=== PATIENT | male | born 1950 | race Caucasian/White ===

== ENCOUNTER 2016-03-19 14:21 | Emergency (ER) | payer MEDICARE, OTHER ==
[2016-03-19 14:31] VITALS: BMI 4104.7
[2016-03-19] MEDS ORDERED: DIPHTHERIA AND TETANUS (ADULT) 0.5 ML SYR IM ONE (14:36)
[2016-03-19] MEDS ORDERED: Lidocaine 2%-Epinephrine 1:100,000 20ml vial INF ONE (14:57)
--- NOTE | 2016-03-19 14:58 | EDPRACDOC ---
- General Information Chief Complaint: Wound Information Source: Patient Mode of Arrival:: Car Home Medications: Home Medications Insulin Glargine,Hum.rec.anlog [Lantus] 25 unit SQ DAILY 02/23/16 Sitagliptin Phosphate [Januvia] 100 mg PO DAILY 02/23/16 Cephalexin Monohydrate [Keflex] 500 mg PO Q6H #28 cap 03/19/16 Mesalamine [Lialda] 1.2 gm PO DAILY 03/19/16 Prednisone [Deltasone, Orasone] 20 mg PO DAILY 03/19/16 Tramadol HCl 50 mg PO TID PRN #30 tablet 03/19/16 Allergies/Adverse Reactions: Allergies Allergy/AdvReac Type Severity Reaction Status Date / Time No Known Allergies Allergy Verified 03/19/16 14:36 - History of Present 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 - Tetanus Status Last Tetanus: No - Pain Pain Severity: None Bleeding: Reports: Controlled Associated Signs & Symptoms: Denies: Loss of Function, Numbness, Weakness ED Past Medical History - History Reviewed Yes Nurses notes reviewed and agree except as marked - Patient Medical History Cardiac History: Reports: Hypertension Respiratory History: Denies: Pneumonia GI/ History: Reports: Kidney Stones, Diverticulosis Musculoskeletal History: Reports: Arthritis (LT KNEE) Psychological History: Reports: Anxiety (ocd). Denies: Depression Surgical History: Denies: Cholecystectomy (2005) - Family Medical History Reports: Hypertension (MOTHER), Cancer (BROTHER), Cardiac Disorders (DAD). Denies: Diabetes, Stroke - Social Medical History Smoking Status: Never smoker EDM Review of Systems - Review of Systems Neurological: negative: Dizziness, Numbness, Weakness Musculoskeletal: No Symptoms Reported Integumentary: Wound - Physical Exam Constitutional: Alert (Awake), No apparent distress Oriented to: Time, Person, Place Last recorded Vital Signs: Last Vital Signs Temp 97.9 F 03/19/16 14:28 Pulse 116 03/19/16 14:28 Resp 20 03/19/16 14:28 BP 117/68 03/19/16 14:28 Pulse Ox 97 03/19/16 14:28 Oxygen Pulse Oxygen Saturation 97 O2 Device Room Air Oxygen Flow Rate Fraction of Inspired Oxygen ( FIO2) - HEENT Head: Normal ( normocephalic) - Integumentary Skin: Warm, Dry, Other (12 CM IRREGULAR SUPERFICIAL LAC ANTERIOR RIGHT LOWER LEG , MINIMAL BLEEDING) - Neurologic Memory Impaired: Normal Motor Function: Normal (Normal tone, Pulses 2+ No cyanosis or edema, FROM) Cranial Nerve: Normal (CN II-X11 intact sensation, strength 5/5) Cerebellar: Normal Mood Description: Normal Perception: Normal ED Procedures - Suture/Laceration RIGHT ANTERIOR LOWER LEG Wound Length (cm): 12 Wound's Depth, Shape: irregular, flap Wound Explored: clean Irrigated w/ Saline (ccs): 20 Betadine Prep?: Yes Anesthesia: Lidocaine w/ Epi Volume Anesthetic (ccs): 18 Wound Debrided: minimal Wound Undermining: minimal Wound Margins: Revised Wound Repaired With: Sutures Suture Size/Type: 4:0, nylon Number of Sutures: 9 (HORIZONTAL MATTRESS) Layer Closure?: No Sterile Dressing Applied?: Yes - Differential Diagnosis Contusion, Laceration Decision Time to Discharge: 16:10 - Departure Disposition: Home Condition: Stable Final Diagnosis: LAC RIGHT LOWER LEG, 12 CM, SIMPLE Instructions: Laceration (ED) Education/Counseling Given To: Patient Education/Counseling Given Regarding: Diagnosis, Treatment, Prognosis, Follow Up Referrals: Francois Vincent MD [Primary Care Provider] - One Week Prescriptions: Cephalexin Monohydrate [Keflex] 500 mg PO Q6H #28 cap Tramadol HCl 50 mg PO TID PRN #30 tablet PRN Reason: Pain Additional Instructions: Keep wound clean and dry, wash daily with soap and water, cover with antibiotic ointment and clean bandage. Have sutures removed in 10-14 days, use Tylenol or Motrin as needed for pain. Return to the ED for any worsening symptoms or concerns. ELEVATE YOUR LEG MUCH POSSIBLE, APPLY COLD COMPRESSES NEEDED FOR PAIN AND SWELLING.
[2016-03-19 16:16] VITALS: BP 120/62; PULSE 98; TEMP 97.8
== END 2016-03-19 16:32 | disposition home or self-care (01) ==
LOC: EDMC 14:21
DX: S81.811A Laceration without foreign body, right lower leg, initial encounter (principal); W31.89XA Contact with other specified machinery, initial encounter; Y93.89 Activity, other specified; Y99.0 Civilian activity done for income or pay; Z23 Encounter for immunization
CPT/HCPCS: 12004; 90471; 90714; 99282; J3490